=== PATIENT | male | born 1965 | race Hispanic/Latino ===

== ENCOUNTER 2021-11-22 22:04 | Emergency (ER) | payer SELFPAY ==
[2021-11-22] MEDS ORDERED: ASPIRIN 325 MG TAB PO ONE (22:14)
[2021-11-22] MEDS ORDERED: IPRATROPIUM 0.02% NEBU 2.5 ML IH ONE (22:36)
[2021-11-22] MEDS ORDERED: methylPREDNISolone Sod Succinate 125 MG/2 ML INJ IV ONE (22:36)
[2021-11-22] MEDS ORDERED: ALBUTEROL 2.5 MG/3 ML NEBU IH ONE (22:36)
--- NOTE | 2021-11-22 22:36 | XRay Report ---
CHEST 1 VIEW INDICATION / CLINICAL INFORMATION: LORRAINE. Dyspnea FINDINGS: SUPPORT DEVICES: None. HEART / MEDIASTINUM: No significant abnormality. LUNGS / PLEURA: Patchy airspace disease within the right lower lung. Left lung is clear. Signer Name: Winston Bang MD Signed: 11/22/2021 10:32 PM Workstation Name: [id number]
[2021-11-22 23:35] LABS: Basophils # (Auto) 0.1 K/mm3 (0.0-0.1); Eosinophils # (Auto) 0.3 K/mm3 (0.0-0.4); Eosinophils % (Auto) 2.6 % (0.0-4.3); Hematocrit 46.2 % (35.5-45.6); Hemoglobin 15.5 gm/dl (11.8-15.2); Lymphocytes # (Auto) 2.6 K/mm3 (1.2-5.4); Mean Corpuscular HGB Conc 34 % (32-34); Mean Corpuscular Volume 95 fl (84-94); Monocytes # (Auto) 1.1 K/mm3 (0.0-0.8); Monocytes % (Auto) 9.2 % (0.0-7.3); Platelet Count 192 K/mm3 (140-440); Red Blood Count 4.89 M/mm3 (3.65-5.03); Red Cell Distribution Width 13.3 % (13.2-15.2)
[2021-11-22 23:38] LABS: INR 1.54 (0.87-1.13)
[2021-11-22 23:49] LABS: Alanine Aminotransferase 14 units/L (7-56); Albumin 4.1 g/dL (3.9-5); BUN/Creatinine Ratio 10; Blood Urea Nitrogen 22 mg/dL (9-20); Calcium 9.9 mg/dL (8.4-10.2); Hemolysis Index 11
--- NOTE | 2021-11-23 01:38 | Emergency Department Report ---
ED Shortness of Breath HPI - General Chief Complaint: Dyspnea/Respdistress Stated Complaint: RESP DISTRESS Time Seen by Provider: 11/22/21 22:36 Source: patient, EMS Mode of arrival: Ambulatory Limitations: No Limitations - History of Present Illness Initial Comments: At airport flying back to [place]. Developed LORRAINE. A-fib noted when EMS arrived. Denies chestpain. MD Complaint: shortness of breath -: hour(s) Consistency: intermittent Improves With: oxygen, bronchodilators Worsens With: exertion Known History Of: COPD Associated Symptoms: denies other symptoms - Related Data Home Oxygen Therapy: No Home Medications Medication Instructions Recorded Confirmed Last Taken Flovent Hfa 110 mcg INHALATION BID 11/22/21 11/22/21 11/22/21 09:00 Furosemide [Lasix] 20 mg PO QDAY 11/22/21 11/22/21 11/22/21 09:00 Metoprolol Xl [Metoprolol 25 mg PO QDAY 11/22/21 11/22/21 11/22/21 09:00 SUCCINATE ER TAB] Metoprolol Xl [Metoprolol 50 mg PO QDAY 11/22/21 11/22/21 11/22/21 09:00 SUCCINATE ER TAB] Metoprolol [Lopressor] 25 mg PO 11/22/21 Unknown Rivaroxaban [Xarelto] 20 mg PO QDAY 11/22/21 11/22/21 11/22/21 09:00 lisinopriL [Zestril] 5 mg PO QDAY 11/22/21 11/22/21 11/22/21 09:00 Allergies Allergy/AdvReac Type Severity Reaction Status Date / Time No Known Allergies Allergy Verified 11/22/21 22:40 ED Review of Systems ROS: Stated complaint: RESP DISTRESS Other details as noted in HPI Constitutional: denies: chills, fever Eyes: denies: eye pain, eye discharge, vision change ENT: denies: ear pain, throat pain Respiratory: denies: cough, shortness of breath, wheezing Cardiovascular: denies: chest pain, palpitations Endocrine: no symptoms reported Gastrointestinal: denies: abdominal pain, nausea, diarrhea Genitourinary: denies: urgency, dysuria Musculoskeletal: denies: back pain, joint swelling, arthralgia Skin: denies: rash, lesions Neurological: denies: headache, weakness, paresthesias Psychiatric: denies: anxiety, depression Hematological/Lymphatic: denies: easy bleeding, easy bruising ED Past Medical Hx - Past Medical History Previous Medical History?: Yes Hx Hypertension: Yes Hx CVA: No Hx Heart Attack/AMI: No Hx COPD: Yes Additional medical history: a-fib, tackycardia - Surgical History Past Surgical History?: No - Social History Smoking Status: Current Every Day Smoker Substance Use Type: Alcohol - Medications Home Medications: Home Medications Medication Instructions Recorded Confirmed Last Taken Type Flovent Hfa 110 mcg INHALATION BID 11/22/21 11/22/21 11/22/21 09:00 History Furosemide [Lasix] 20 mg PO QDAY 11/22/21 11/22/21 11/22/21 09:00 History Metoprolol Xl [Metoprolol 25 mg PO QDAY 11/22/21 11/22/21 11/22/21 09:00 History SUCCINATE ER TAB] Metoprolol Xl [Metoprolol 50 mg PO QDAY 11/22/21 11/22/21 11/22/21 09:00 History SUCCINATE ER TAB] Metoprolol [Lopressor] 25 mg PO 11/22/21 Unknown History Rivaroxaban [Xarelto] 20 mg PO QDAY 11/22/21 11/22/21 11/22/21 09:00 History lisinopriL [Zestril] 5 mg PO QDAY 11/22/21 11/22/21 11/22/21 09:00 History ED Physical Exam - General Limitations: No Limitations General appearance: alert, in no apparent distress - Head Head exam: Present: atraumatic, normocephalic - Eye Eye exam: Present: normal appearance - ENT ENT exam: Present: mucous membranes moist - Neck Neck exam: Present: normal inspection - Respiratory Respiratory exam: Present: normal lung sounds bilaterally, wheezes. Absent: respiratory distress - Cardiovascular Cardiovascular Exam: Present: regular rate, normal rhythm. Absent: systolic murmur, diastolic murmur, rubs, gallop - GI/Abdominal GI/Abdominal exam: Present: soft, normal bowel sounds - Rectal Rectal exam: Present: deferred - Extremities Exam Extremities exam: Present: normal inspection - Back Exam Back exam: Present: normal inspection - Neurological Exam Neurological exam: Present: alert, oriented X3 - Psychiatric Psychiatric exam: Present: normal affect, normal mood - Skin Skin exam: Present: warm, dry, intact, normal color. Absent: rash ED Course Vital Signs 11/22/21 11/22/21 11/22/21 22:05 22:23 22:30 Temperature 98 F Pulse Rate 88 88 87 Respiratory 20 18 22 Rate Blood Pressure 96/72 98/60 O2 Sat by Pulse 97 98 98 Oximetry 11/22/21 11/22/21 11/22/21 22:46 22:53 23:00 Temperature Pulse Rate 85 82 Respiratory 24 25 H 18 Rate Blood Pressure 95/50 112/77 O2 Sat by Pulse 96 2 L 99 Oximetry 11/22/21 11/22/21 11/22/21 23:16 23:30 23:45 Temperature Pulse Rate 81 72 70 Respiratory 18 19 18 Rate Blood Pressure 112/68 107/66 111/59 O2 Sat by Pulse 100 100 100 Oximetry 11/23/21 11/23/21 00:00 00:16 Temperature Pulse Rate 74 87 Respiratory 14 15 Rate Blood Pressure 106/62 108/62 O2 Sat by Pulse 97 99 Oximetry ED Medical Decision Making - Lab Data Result diagrams: 11/22/21 22:36 11/22/21 22:36 - EKG Data -: EKG Interpreted by Ar EKG shows normal: sinus rhythm Rate: normal - EKG Data Interpretation: no acute changes - Radiology Data Radiology results: report reviewed, image reviewed - Medical Decision Making work up showed COPD rt given steriods possible eraly pneumonia Critical care attestation.: If time is entered above; I have spent that time in minutes in the direct care of this critically ill patient, excluding procedure time. ED Disposition Clinical Impression: SOB (shortness of breath), COPD exacerbation Disposition: 01 HOME / SELF CARE / HOMELESS Is pt being admited?: No Does the pt Need Aspirin: No Condition: Stable Instructions: Chronic Obstructive Pulmonary Disease (ED), Shortness of Breath, Adult, [id number] Referrals: EDWARDO GRAHAM MD [Primary Care Provider] - 3-5 Days
[2021-11-23 02:25] VITALS: BP 109/72
--- NOTE | 2021-11-23 10:05 | Electrocardiograph Report ---
[facility] Test Date: 2021-11-22 Test Time: 22:16:28 Pat Name: TURNER NAZARIO Department: Room: Gender: M [employer]: sunshine : 1965 Requested By: ED DOC Order Number: [id number] Reading MD: Patrick Rodriguez Measurements Intervals Ball Rate: 87 P: 49 UT: 181 QRS: 65 QRSD: 86 T: 60 QT: 347 QTc: 418 Interpretive Statements Sinus rhythm Atrial premature complexes No previous ECG available for comparison Electronically Signed On 11-23-2021 10:05:27 EDT by Patrick Rodriguez
== END 2021-11-23 02:31 | disposition home or self-care (01) ==
LOC: ED 22:04
DX: J44.1 Chronic obstructive pulmonary disease with (acute) exacerbation (principal); R06.02 Shortness of breath; I10 Essential (primary) hypertension
CPT/HCPCS: 36415; 71045; 80053; 82140; 82550; 82553; 83690; 83735; 83880; 84484; 85025; 85610; 93005; 96374; 99284; J2930